=== PATIENT | male | born 1955 | race Two or more races ===

== ENCOUNTER → 2017-05-02 | Day surgery (SDC) | payer BC ==
[~2017-05-02] MED LIST: ADRENOID CAPSU1 EACH PO; AVODART0.5 MG PO; CYANOCOBALAM1000 MCG PO; HYDROCODON-ACE1 EAC9 PO; LASIX20 MG PO; LIPITOR40 MG PO; POTASSIUM CHLO10 ME1 PO; PRAVASTATIN SOD40 MG PO; TOPROL XL PO
--- NOTE | ~2017-05-02 | OR ---
Unit #: [id number] #: [id number] Patient: LO BROWN [id number] [address] [place], [place] [address] [id number] MR#: [id number] NAME: LO BROWN ROOM: Date of Procedure: 05/02/2017 Admission Date: 05/02/2017 Surgeon: Kenton Saini III, M.D. : 1955 Attending Physician: Kenton Saini III, M.D. Primary Care Physician: Ciaran Cazares M.D. OPERATIVE REPORT PREOPERATIVE DIAGNOSIS Personal history of colon cancer. POSTOPERATIVE DIAGNOSIS Personal history of colon with two small polyps in the transverse colon. PROCEDURE PERFORMED Colonoscopy to cecum with cold biopsy x2. ANESTHESIA MAC. SPECIMENS Polyp sent to Pathology. COMPLICATIONS None apparent. INDICATIONS FOR PROCEDURE This is a 62-year-old gentleman, who has a history of colon cancer and is status post hand-assisted laparoscopic sigmoid colectomy. He had a followup scope one year ago that was normal. He is here today for colonoscopy surveillance. DESCRIPTION OF PROCEDURE After consent was obtained, the patient was brought to the endoscopy suite and placed in the left lateral decubitus position. I performed a rectal exam and did not feel any masses. His prostate was smooth. I passed the scope within the rectal vault. Air was insufflated. I navigated the scope through this anastomosis all the way to the cecum without any difficulty. He had normal mucosa. No evidence of any diverticular disease. He had two very small hyperplastic appearing polyps in the proximal transverse colon approximately 100 cm from the anal verge. Both of these were cold biopsied with biopsy forceps and removed completely. They were sent to Pathology in the same container. The scope was then retroflexed within the rectum. No other masses were seen. The scope was then carefully withdrawn. The patient tolerated the procedure without any problems. I will have him call my office next week for biopsy results. Depending on his path report, he may be able to go two years before his next scope. Unit #: [id number] #: [id number] Patient: LO BROWN Dictated by... Ketnon Saini III, M.D. VCL/aziza TD: 05/02/2017 12:15 JOB #: [id number] CC: Ciaran Cazares M.D. OPERATIVE REPORT Page 1 of 1 X Kenton Saini III, MD PROCEDURE OPERATIVE NOTE
== END | disposition home or self-care (01) ==
LOC: COPS 09:22
DX: Z12.11 Encounter for screening for malignant neoplasm of colon (principal); D12.3 Benign neoplasm of transverse colon; N40.0 Benign prostatic hyperplasia without lower urinary tract symptoms; E78.5 Hyperlipidemia, unspecified; Z85.038 Personal history of other malignant neoplasm of large intestine; Z90.49 Acquired absence of other specified parts of digestive tract; Z79.899 Other long term (current) drug therapy
CPT/HCPCS: 88305